=== PATIENT | female | born 1960 | race Caucasian/White ===

== ENCOUNTER 2017-11-28 06:58 | Day surgery (SDC) | payer BC ==
[2017-11-27 11:27] VITALS: BMI 34.9
[~2017-11-28 06:58] MED LIST: FAMOTIDINE 20 MG/2 ML VIAL IV ONE; LACTATED RINGERS 1,000 ML IV SCH; Pre Op ABX Message 1 EACH MISC MISCELLANE ONE
[2017-11-28 07:18] VITALS: TEMP 98.3
[2017-11-28] MEDS ORDERED: LIDOCAINE 1% 20 ML VIAL (10MG/ML) FOR IV START INTRADERMA ONE (07:29)
[2017-11-28] MEDS ORDERED: MIDAZOLAM 2 MG/2 ML VIAL ONE (09:07)
[2017-11-28] MEDS ORDERED: PROPOFOL 10 MG/ML 20 ML VIAL IV ONE (09:07)
[2017-11-28] MEDS ORDERED: fentaNYL (PF) 50 MCG/ML 2 ML AMP ONE (09:07)
[2017-11-28] MEDS ORDERED: OFLOXACIN 0.3% OPHTH DROPS 5 ML BOTTLE LEFT EAR ONE (09:18)
--- NOTE | 2017-11-28 09:20 | P.OP ---
Date of Procedure: 11/28/17 Preoperative Diagnosis: Left chronic otitis media Postoperative Diagnosis: Same Procedure(s) Performed: Left ventilation tube placement Anesthesia: RIRI Surgeon: Chris Page Estimated Blood Loss (ml): 0 Pathology: none sent Condition: stable Disposition: PACU Indications for Procedure: This 56-year-old white female whose had difficulties with chronic left-sided middle ear effusion and decreased hearing Operative Findings: Relatively narrow ear canal. Serous otitis media on the left Description of Procedure: Patient brought in the operative suite and placed in a supine. The patient underwent induction of IV sedation with appropriate monitors placed prior to this. The patient was prepped and draped in usual aseptic fashion and the left ear was examined under microscopy with the Zeiss microscope. An anteroinferior myringotomy was placed in radial fashion and the middle ear effusion was aspirated. A 1.1 mm collar bobbin ventilation tube was placed without difficulty. Ciloxan drops were then placed. Sterile cottonball was placed. The patient was allowed to emerge from anesthesia having tolerated procedure well was transferred postoperative recovery area in satisfactory condition.
[2017-11-28 09:52] VITALS: RESP 18
[2017-11-28 10:23] VITALS: BP 133/76; PULSE 68
== END 2017-11-28 10:23 | disposition home or self-care (01) ==
LOC: OR 06:58
PROVIDERS: ATTEND Otolaryngology
DX: H65.22 Chronic serous otitis media, left ear (principal); H90.A21 Sensorineural hearing loss, unilateral, right ear, with restricted hearing on the contralateral side; Z80.3 Family history of malignant neoplasm of breast; Z80.0 Family history of malignant neoplasm of digestive organs; Z82.61 Family history of arthritis; Z80.1 Family history of malignant neoplasm of trachea, bronchus and lung; Z83.3 Family history of diabetes mellitus
CPT/HCPCS: 69436; J2250; J3010; J2704

== ENCOUNTER → 2018-02-13 | Outpatient (CLI) | payer BC ==
--- NOTE | 2018-02-13 22:50 | MR ---
EXAMINATION TYPE: MR iac wo/w con DATE OF EXAM: 02/13/2018 COMPARISON: NONE HISTORY: Hearing loss left ear, Tube placement 11/2017. 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 TECHNIQUE: Multiplanar, multisequence images of the brain and brainstem is performed without and with IV contras t, utilizing 10 mL intravenous Gadavist . Acoustic nerve disorder protocol. FINDINGS: Diffusion weighted images demonstrate no evidence of a recent infarct or other diffusion ab normality. There is no worrisome extra-axial fluid collection. The ventricular system and cisternal spaces are normal in size and appearance. The brain volume is age appropriate. There are a few scat tered small foci of T2 hyperintensity seen throughout the white matter bilaterally. Approximately 5-8 small scattered lesions are seen measuring 4 mm or smaller in size. Midline structures demonstrate normal morphology. The craniocervical junction appears within normal limits. Normal vascular flow voids are felt present. The globes are intact bilaterally. Visualized pa ranasal sinuses are clear. No suspicious increase fluid signal is seen in mastoid air cells bilaterally. The vestibulocochlear c omplexes are symmetric and felt within normal limits. No suspicious enhancing cerebellopontine angle mass is identified bilaterally. IMPRESSION: . No suspicious enhancing mass identified to account for patient's symptoms. Mild to mini mal nonspecific white matter changes most likely on basis of product of chronic small vessel ischemic changes otherwise unremarkable study.
== END | disposition home or self-care (01) ==
LOC: RADMRIMAIN 16:33
PROVIDERS: ATTEND Otolaryngology
DX: H93.3X2 Disorders of left acoustic nerve (principal)
CPT/HCPCS: 70553; A9581

== ENCOUNTER → 2022-11-07 | Outpatient (CLI) | payer BC ==
--- NOTE | 2022-11-07 13:16 | CA ---
Exercise Stress Test Report Name: Elida Mcbride Exam Date: 11/07/2022 09:14 Exam Location: [facility] Stress Ht (in): 62 Wt (lb): 205 BSA: 1.93 Ordering Phys: Mati Bernal DO Referring Phys: Chloe Dai PAC Technologist: Orlando Rodriguez Age: 61 Gender: F : 1960 Procedure CPT: Indications: R07.9 ICD-10 Codes: Patient History: CHEST PAIN, ELEVATED CHOLESTEROL LEVELS Medications: CHOLESTEROL MEDS Meds past 24 hrs: Pretest Chest Pain: STRESS TEST German Protocol Exercise Duration (min:sec): 06:[address] Depressions (mm): 0 Angina Score: 0 Enrique Score: 6.53 Resting HR (bpm): 84 Peak HR (bpm): 157 Resting BP (mmHg): 153 / 85 Peak BP (mmHg): 208 / 82 MPHR: 160 Target HR: 136 % MPHR: 98 METS: 8.0 Total Dose: Peak Dose: Atropine: Double Product: 67199 BP Response: Stress Termination: Fatigue Stress Symptoms: SHORTNESS OF BREATH Stress Summary: The patient's target heart rate was achieved ECG ANALYSIS Resting ECG: Sinus rhythm. Normal conduction. No arrhythmias. Normal repolarization. Stress ECG: No ECG evidence of ischemia with exercise. Ventricular premature contraction. CONCLUSIONS Patient falls into low-risk group (DTS >= +5). This associates the patient with an annual CV mortality <= 0.5%. 1. Average exercise tolerance 2. Normal electrocardiographic response to exercise with no evidence of exercise induced ischemia. Dr. Anderson Chávez MD (Electronically Signed) Final Date: 07 Nov 2022 13:15
== END | disposition home or self-care (01) ==
LOC: RADNMMAIN 08:45
PROVIDERS: ATTEND Family Medicine
DX: R07.9 Chest pain, unspecified (principal); R06.02 Shortness of breath
CPT/HCPCS: 93017